=== PATIENT | female | born 1965 | race Caucasian/White ===

== ENCOUNTER 2018-09-12 18:23 | Inpatient (IN) | payer OTHER ==
[~2018-09-12] VITALS: Ht 160 cm; Wt 102.9 kg
--- NOTE | ~2018-09-12 | OP ---
[address] [address] OPERATIVE REPORT Name: BRANDI HENDERSON Room: [facility]#: [id number] Admission: 09/12/18 Attend Phys: Discharge: Date of : 65 Report #: [id number] THIS REPORT FOR: //name// CC: Jigna Méndez [facility] physician/PCP DATE OF SERVICE: 09/12/2018 PREOPERATIVE DIAGNOSES: Left ureteropelvic junction stone, pyelonephritis, fever. POSTOPERATIVE DIAGNOSES: Left ureteropelvic junction stone, pyelonephritis, fever. PROCEDURES: Cystourethroscopy, left retrograde pyelogram and left ureteral stent placement (6-Prydeinig x 24 cm). SURGEON: Jessica John M.D. ANESTHESIA: General. ESTIMATED BLOOD LOSS: None. COMPLICATIONS: None. SPECIMENS: Urine from left kidney for culture and sensitivity. INDICATIONS FOR PROCEDURE: The patient is a 53-year-old female who presented with a febrile, 12 mm left UPJ obstructing stone. She has actually had symptoms for over 2 months. She had leukocytosis and tachycardia on admission. Therefore, emergent stent placement was indicated. Risks of procedure were discussed including, not limited to infection, bleeding, injury to the urethra, bladder or ureter, need for secondary procedures, stent pain, cardiopulmonary complications. She voiced understanding and wishes to proceed. She does understand that the stent is temporary and after she has received adequate antibiotic course, she will be required to follow up with me for stone treatment in the future. DESCRIPTION OF PROCEDURE: After informed consent was obtained, the patient was taken back to the operating suite and placed supine. After induction of general anesthesia, she was placed in dorsal lithotomy position. Genitalia were prepped and draped in standard fashion. Rigid cystoscopy was performed. Urethra was normal. 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 Ureteral orifices were orthotopic in position. On fluoroscopy, the stone was visible and looked [place] [address] OPERATIVE REPORT Name: BRANDI HENDERSON Room: [facility]#: [id number] Admission: 09/12/18 Attend Phys: Discharge: Date of : 65 Report #: [id number] lower pole of the kidney. A sensor wire was placed up into the kidney and there was efflux of purulent urine from around the wire. The 5-Prydeinig ureteral catheter was inserted over the wire up into the kidney. The wire was removed and urine was aspirated, which was frankly purulent and sent for culture and sensitivity. Gentle retrograde was performed to delineate the collecting system for stent placement and this did confirm the stone had floated back into the lower pole. She had moderate hydronephrosis and not a whole lot of room in her renal pelvis. The wire was replaced and an open-ended catheter was removed. A 6-Prydeinig x 24 cm double-J stent was threaded over the wire. The proximal curl was left in the upper pole as there was not enough room for a whole curl in the renal pelvis and there was a good curl in the bladder under direct visualization. Purulent efflux was seen coming from the stent. The bladder was then drained and the scope was removed. A 5 mL of lidocaine jelly were placed per urethra for local anesthesia. She was awoken, extubated, and taken to recovery in satisfactory condition. She will be admitted to the floor on IV antibiotics and we will follow her cultures. She will require full antibiotic course before we schedule her for stone treatment. By: [id number] John MD /nt
[2018-09-12 18:37] VITALS: BP 153/81
[2018-09-12 19:00] LABS: HEMATOCRIT 50.1 % (37.0-47.0); HEMOGLOBIN 16.8 gm/dL (12.0-15.0); MCH 30.6 pg (26.0-34.0); MCHC 33.6 g/dL (28.0-37.0); MCV 91.3 fL (80.0-100.0); MPV 10.3 fl. (7.2-11.1); NUCLEATED RBCS 0 /100WBC; PLATELET COUNT* 202 thou/uL (150-400); RBC 5.49 mil/uL (4.20-5.00); RDW-CV 13.8 % (10.5-14.5); WBC 23.1 thou/uL (4.0-11.0)
[2018-09-12 19:10] LABS: CALCIUM 11.8 mg/dL (8.5-10.1); CREATININE 1.7 mg/dL (0.6-1.3); POTASSIUM 5.3 mmol/L (3.5-5.1)
[2018-09-12 19:14] LABS: ABSOLUTE LYMPHOCYTES 1.6 thou/uL (0.8-5.3); ABSOLUTE MONOCYTES 0.7 thou/uL (0.0-1.2); ABSOLUTE NEUTROPHILS 20.8 thou/uL (1.6-8.1); ALBUMIN 3.8 g/dL (3.4-5.0); PLATELET ESTIMATE ADEQUATE; TOTAL BILIRUBIN 0.6 mg/dL (<0.1-1.0); TOTAL PROTEIN 8.5 g/dL (6.4-8.2)
[2018-09-12 19:19] LABS: URINE BILIRUBIN NEGATIVE (Negative); URINE BLOOD 2+ (Negative); URINE CLARITY CLEAR; URINE COLOR YELLOW; URINE GLUCOSE-RANDOM NEGATIVE (Negative); URINE KETONES NEGATIVE (Negative); URINE NITRITE-REFLEX NEGATIVE (Negative); URINE PROTEIN 1+ (Negative); URINE SPECIFIC GRAVITY 1.015 (1.005-1.030); URINE UROBILINOGEN 0.2 E.U./dl (0.2-1.0)
[2018-09-12 19:21] LABS: URINE LEUKOCYTES-REFLEX 2+ (Negative)
[2018-09-12 19:31] LABS: SQUAMOUS NONE SEEN /LPF (0-3); URINE RBC 0-2 Rare /HPF (0-2)
[2018-09-12 19:32] LABS: BACTERIA-REFLEX None Seen /HPF (None Seen); CASTS None Seen /LPF (None Seen); CRYSTALS None Seen /LPF (None Seen)
[2018-09-12 20:41] LABS: APTT 30.3 Seconds (25.0-31.3); PROTIME 10.1 Seconds (9.20-11.50)
[2018-09-12 21:13] VITALS: BP 100/59
[2018-09-12 22:45] VITALS: BP 122/63
[2018-09-13] VITALS: BP 138/63
[2018-09-13 05:39] LABS: HEMATOCRIT 43.1 % (37.0-47.0); MCHC 33.4 g/dL (28.0-37.0); MCV 92.8 fL (80.0-100.0); MPV 10.2 fl. (7.2-11.1); RBC 4.65 mil/uL (4.20-5.00); RDW-CV 13.8 % (10.5-14.5); WBC 20.2 thou/uL (4.0-11.0)
[2018-09-13 05:45] LABS: HEMOGLOBIN 14.4 gm/dL (12.0-15.0)
[2018-09-13 05:50] LABS: CALCIUM 10.8 mg/dL (8.5-10.1); CREATININE 1.6 mg/dL (0.6-1.3)
--- NOTE | 2018-09-13 06:00 | NUR ---
PATIENT ARRIVED TO ROOM VIA CART AT 2240. REPORT RECEIVED FROM NINA RAYMOND. PT AAOX4, MED SURG STATUS. ORIENTED TO ROOM AND CALL LIGHT. SCDS IN PLACE, VSS, HOURLY ROUNDING COMPLETED.CALL LIGHT WITHIN REACH. NEGATIVE SEPSIS SCREENING.
[2018-09-13 07:37] VITALS: BP 123/68
--- NOTE | 2018-09-13 07:46 | NUR ---
ASSUMED CARE OF PT AT 0730. PT RESTING IN BED. PT A&0X4, DENIES ANY PAIN OR SHORTNESS OF BREATH AT THIS TIME. PT GIVEN PAIN MEDS BY NOC SHIFT STATING "IT HELPED". PT MED SURG STATUS. ON RA SAT 92%. IVF. PT UP SBA TO BATHROOM. PT GOAL FOR TODAY IS PAIN AND NAUSEA MGMT, INCREASE ACTIVITY, IV ABX AND DISCHARGE PLANNING TO HOME. AM ASSESSMENT CHARTED. MEDICATIONS PER MAR. PT REPOSITIONS SELF. HOURLY ROUNDING OBSERVED. BED IN LOW POSITION. CALL LIGHT WITHIN REACH. WILL CONTINUE PLAN OF CARE.
--- NOTE | 2018-09-13 10:37 | NUR ---
Pt is A&O. Resides at home with dtr. Active and independent. No DME. No hx of HH or SNF. Goal is home at dc. No needs anticipated.
--- NOTE | 2018-09-13 13:18 | EKG ---
[place] [address] ELECTROCARDIOGRAM REPORT Name: BRANDI HENDERSON Room: [address] ADM IN M.R.#: [id number] Admission: 09/12/18 Attend Phys: Brittney Mayer Discharge: Date of : 65 Report #: [id number] THIS REPORT FOR: //name// [facility] [place] ED Test Date: 2018-09-12 Test Time: 18:45:49 Pat Name: BRANDI HENDERSON Department: Room: [facility] Gender: F Highway Traffic Control Technician: : 1965 Requested By: Jigna Méndez Order Number: [id number] MD: Almas Moss Measurements Intervals [place] Rate: 120 P: 71 [place]: 164 QRS: 84 QRSD: 88 T: 24 QT: 304 QTc: 430 Interpretive Statements Sinus tachycardia Anterolateral infarct, old Baseline wander in lead(s) III,aVL,aVF No previous ECG available for comparison Electronically Signed On 09-13-2018 13:18:02 CDT by Almas Moss [email or web address] <ELECTRONICALLY SIGNED> By: Almsa Moss MD, [facility] 09/13/18 1318 1845 1845 Almas Moss MD, FAC /EPI
[2018-09-13 16:08] VITALS: BP 125/70
--- NOTE | 2018-09-13 16:39 | NUR ---
NO ACUTE CHANGES THROUGHOUT SHIFT, REFER TO CHARTING. PT COMPLAINS OF PAIN AND BLADDER SPASMS THROUGHOUT SHIFT-TREATED WITH PRN WITH PARTIAL RELIEF. PT CONTINUES TO BE ON MED SURG. ON RA SAT UPPER 90'S. PT UP AD MELINA IN ROOM. PT VOIDING WELL. PT PROGRESSING TOWARDS GOALS. REMAINED FREE FROM NAUSEA THROUGHOUT SHIFT. IV ABX. MEDICATIONS PER JUN. PT REPOSITIONS SELF. HOURLY ROUNDING OBSERVED. BED IN LOW POSITION. CALL LIGHT WITHIN REACH. WILL CONTINUE PLAN OF CARE.
[2018-09-13 20:00] VITALS: BP 146/69
[2018-09-13 23:57] VITALS: BP 114/65
[2018-09-14 03:51] LABS: HEMATOCRIT 41.7 % (37.0-47.0); HEMOGLOBIN 13.8 gm/dL (12.0-15.0); MCH 30.9 pg (26.0-34.0); MCHC 33.1 g/dL (28.0-37.0); MCV 93.2 fL (80.0-100.0); MPV 10.5 fl. (7.2-11.1); RBC 4.48 mil/uL (4.20-5.00); RDW-CV 13.7 % (10.5-14.5); WBC 14.7 thou/uL (4.0-11.0)
[2018-09-14 04:24] LABS: CALCIUM 11.2 mg/dL (8.5-10.1); CREATININE 1.4 mg/dL (0.6-1.3); MAGNESIUM 1.9 mg/dL (1.8-2.4); POTASSIUM 4.7 mmol/L (3.5-5.1)
[2018-09-14 07:10] VITALS: BP 149/74
--- NOTE | 2018-09-14 07:58 | NUR ---
INITAL ASSESMENT COMPLETED CHARTED. PT IS M/S STATUS. PT IS AFEBRILE THIS MORNING WITH O2 SATS AT 87% ON RA. PT GIVEN HYDROCODONE FOR PAIN/FEVER. PT ALSO PUT ON 1 LPM WITH O2 SATS RISING TO 92%. HOURLY ROUNDING AND FALL PRECAUTIONS IN PLACE FOR PT SAFETY. PT IS ALERT & ORIENTED AND ABLE TO VOICE ALL NEEDS. PT MASHA ANY FURTHER NEEDS AT THIS TIEM. CLWR.
[2018-09-14 11:35] VITALS: BP 123/59
[2018-09-14 13:49] LABS: CREATININE 1.4 mg/dL (0.6-1.3); PHOSPHORUS* 3.1 mg/dL (2.5-4.9)
[2018-09-14 20:00] VITALS: BP 145/64
--- NOTE | 2018-09-14 20:11 | NUR ---
I ASSUMED CARE OF THE PATIENT AT 1400 AND SHE WAS OFF THE UNIT FOR SURGERY UNTIL 1730. SHE IS ALERT AND ORIENTED X4 AND IS UP AD MELINA. SHE HAS A DECOMPRESSION TUBE HOOKED UP TO LIS AND SHOULD BE IRRIGATED EVERY 4 HOURS WITH 300 CC OF WARM WATER AND LIS OFF FOR 30 MIN. HOURLY ROUNDING IS COMPLETED AND PATIENT NEEDS ARE MET. PAIN IS MANAGED WITH PRN MEDS. POTASSIUM IS BEING REPLACED. WILL CONTINUE TO MONITOR.
--- NOTE | 2018-09-14 20:19 | NUR ---
I ASSUMED CARE OF THE PATIENT AT 1400. SHE IS ALERT AND ORIENTED X4 AND IS UP AD MELINA. STENT IS IN PLACE. PATIENT IS OCCASSIONALLY FEBRILE. TYLENOL WAS GIVEN TO MANAGE FEVER. WILL CONTINUE TO MONITOR. HOURLY ROUNDING WAS COMPLETED AND PATIENT NEEDS WERE MET. PAIN IS MANAGED WITH PRN MEDS. WILL CONTINUE TO MONITOR.
[2018-09-15 03:48] LABS: HEMATOCRIT 40.8 % (37.0-47.0); HEMOGLOBIN 13.6 gm/dL (12.0-15.0); MCH 30.7 pg (26.0-34.0); MCHC 33.3 g/dL (28.0-37.0); MCV 92.3 fL (80.0-100.0); MPV 10.5 fl. (7.2-11.1); RBC 4.42 mil/uL (4.20-5.00); RDW-CV 13.6 % (10.5-14.5); WBC 8.1 thou/uL (4.0-11.0)
[2018-09-15 04:02] LABS: CALCIUM 10.9 mg/dL (8.5-10.1); CREATININE 1.2 mg/dL (0.6-1.3); MAGNESIUM 1.7 mg/dL (1.8-2.4); POTASSIUM 4.5 mmol/L (3.5-5.1)
[2018-09-15 07:40] VITALS: BP 156/87
--- NOTE | 2018-09-15 13:24 | NUR ---
Nutrition: Pt admitted with sepsis 2/2 ureteral stone s/p stent e. coli. Seen for high BMI. Current wt is recorded as 226#; usual wt is ~220#. Regular diet ordered. Albumin 3.8. No edema noted. Encourage good po intake at meal times, and good fluid intake. Consider mild nutrition risk at this time.
[2018-09-15 15:32] VITALS: BP 157/73
--- NOTE | 2018-09-15 16:28 | NUR ---
ASSUMED CARE OF PATIENT AT APPROX 0730. ALERT AND ORIENTED X4. ASSESSMENT COMPLETED AND CHARTED. VSS ON ROOM AIR. PAIN MANAGED WITH ORAL PAIN MEDICATION. ANTIBIOTIC INFUSED ORDERED. PATIENT UP IN CHAIR THROUGHOUT SHIFT. NOT OTHER COMPLAINTS VOICED. PATIENT UP AD MELINA. SHOWERED TODAY. HOURLY OUNDS COMPLETED. CALL LIGHT WITHIN REACH. NURSING WILL CONTINUE TO MONITOR.
[2018-09-15 21:30] VITALS: BP 138/84
[2018-09-15 22:30] VITALS: BP 138/84
[2018-09-16 05:07] LABS: CALCIUM 11.2 mg/dL (8.5-10.1); CREATININE 1.2 mg/dL (0.6-1.3); MAGNESIUM 1.8 mg/dL (1.8-2.4); POTASSIUM 4.4 mmol/L (3.5-5.1)
--- NOTE | 2018-09-16 05:56 | NUR ---
PATIENT HAS RESTED WELL THROUGHOUT THE NIGHT. VSS ON RA, ALTHOUGH PATIENT DID HAVE TEMP OF 100.0. PATIENT IS UP AD-MELINA AND STEADY. MEDICATIONS GIVEN ORDERED AND CHARTED. IV IN RIGHT HAND-SL. PATIENT INSTRUCTED TO USE CALL LIGHT WHEN NEEDING ASSISTANCE. HOURLY ROUNDS MADE. WILL CONTINUE WITH PLAN OF CARE AND NURSING TO MONITOR.
[2018-09-16 07:50] VITALS: BP 151/89
[2018-09-16] MEDS ORDERED: HYDROCODON-ACE1 EAC7 PO (08:10)
[2018-09-16] MEDS ORDERED: COLACE 100 MG100 MG PO (08:10)
[2018-09-16] MEDS ORDERED: CEFUROXIME500 MG PO (08:10)
[2018-09-16] MEDS ORDERED: ERGOCALCIF50000 UNIT PO (08:10)
[2018-09-16] MEDS ORDERED: LEVSIN0.125 MG SUBLING (08:10)
[2018-09-16] MEDS ORDERED: ZOFRAN ODT4 MG PO (08:18)
[2018-09-16 15:12] VITALS: BP 151/89
--- NOTE | 2018-09-16 16:10 | NUR ---
DISCHARGE TO HOME. REVIEW OF DISCHARGE INSTRUCTIONS COMPLETED W/ PATIENT. PATIENT STATES VERBALLY OF UNDERSTANDING. COPY OF INSTRUCTIONS GIVEN TO PATIENT. SCRIPTS GIVEN TO PATIENT. BELONGINGS GATHERED PER PATIENT. BELONGINGS WITH PATIENT AT TIME OF DISCHARGE. IV SL DISCONTINUED, CATH TIP INTACT. COTTON BALL/TAPE APPLIED TO SITE. SON ARRIVES TO SCRAP BALER PATIENT. PATIENT ESCORTED TO AWAITING VEHICLE PER PEDIS W/ STEADY, SLOW GAIT. DENIES PAIN/N/V. NO OTHER NURSING NEEDS VOICED AT THIS TIME. PLEASANT AND CONVERSANT. ALERT AND ORIENTED. ~TJRN
== END 2018-09-16 16:10 | disposition home or self-care (01) | DRG 853 ==
LOC: M.ERS 18:23 → M.SUR 18:23 → M.2W 22:47 → M.ORTHSURG 09-14 14:29
PROVIDERS: Internal Medicine; Nurse Practitioner Family; Urology; ADMIT Internal Medicine
PROC: BT1F1ZZ Fluoroscopy of Left Kidney, Ureter and Bladder using Low Osmolar Contrast (ICD-10-PCS; principal; 2018-09-12)
PROC: 0T778DZ Dilation of Left Ureter with Intraluminal Device, Via Natural or Artificial Opening Endoscopic (ICD-10-PCS; principal; 2018-09-12)
DX: A41.9 Sepsis, unspecified organism (principal); N17.0 Acute kidney failure with tubular necrosis; N13.6 Pyonephrosis; Z68.41 Body mass index [BMI] 40.0-44.9, adult; E55.9 Vitamin D deficiency, unspecified; E21.3 Hyperparathyroidism, unspecified; E66.9 Obesity, unspecified; E83.52 Hypercalcemia; J84.89 Other specified interstitial pulmonary diseases; F17.210 Nicotine dependence, cigarettes, uncomplicated; K59.00 Constipation, unspecified; R31.9 Hematuria, unspecified; Z86.73 Personal history of transient ischemic attack (TIA), and cerebral infarction without residual deficits; Z98.891 History of uterine scar from previous surgery

== ENCOUNTER 2020-06-19 21:15 | Inpatient (IN) | payer OTHER ==
[~2020-06-19] VITALS: Ht 157.5 cm; Wt 115.8 kg
[2020-06-19 21:15] VITALS: BP 197/93
[~2020-06-19 21:15] MED LIST: CEFUROXIME500 MG PO; COLACE 100 MG100 MG PO; ERGOCALCIF50000 UNIT PO; HYDROCODON-ACE1 EAC7 PO; LEVSIN0.125 MG SUBLING; ZOFRAN ODT4 MG PO
[2020-06-19 21:33] LABS: ABSOLUTE BASOPHILS 0.2 thou/uL (0.0-0.2); ABSOLUTE EOSINOPHILS 0.3 thou/uL (0.0-0.7); ABSOLUTE LYMPHOCYTES 3.8 thou/uL (0.8-5.3); ABSOLUTE NEUTROPHILS 6.7 thou/uL (1.6-8.1); BASOPHILS 1.4 %; EOSINOPHILS 2.4 %; HEMATOCRIT 51.3 % (37.0-47.0); HEMOGLOBIN 16.8 gm/dL (12.0-15.0); LYMPHOCYTES 31.5 %; MCH 30.6 pg (26.0-34.0); MCHC 32.8 g/dL (28.0-37.0); MCV 93.3 fL (80.0-100.0); MONOCYTES 8.3 %; MPV 9.4 fl. (7.2-11.1); NUCLEATED RBCS 0 /100WBC; PLATELET COUNT* 179 thou/uL (150-400); POLYS 56.4 %; RDW-CV 15.5 % (10.5-14.5); WBC 11.9 thou/uL (4.0-11.0)
[2020-06-19 21:48] LABS: CREATININE 1.1 mg/dL (0.6-1.3); POTASSIUM 4.4 mmol/L (3.5-5.1)
[2020-06-19 21:58] LABS: ALBUMIN 3.3 g/dL (3.4-5.0); MAGNESIUM 2.1 mg/dL (1.8-2.4); PROTIME 10.2 Seconds (9.20-11.50); TOTAL BILIRUBIN 0.3 mg/dL (<0.1-1.0); TOTAL PROTEIN 8.1 g/dL (6.4-8.2)
[2020-06-20] VITALS (10 sets, daily range): BP systolic 112–156; BP diastolic 55–83
[2020-06-20 00:32] LABS: URINE BILIRUBIN NEGATIVE (Negative); URINE BLOOD NEGATIVE (Negative); URINE CLARITY CLEAR; URINE COLOR YELLOW; URINE GLUCOSE-RANDOM NEGATIVE (Negative); URINE KETONES NEGATIVE (Negative); URINE LEUKOCYTES-REFLEX NEGATIVE (Negative); URINE NITRITE-REFLEX NEGATIVE (Negative); URINE PROTEIN NEGATIVE (Negative); URINE UROBILINOGEN 0.2 E.U./dl (0.2-1.0)
--- NOTE | 2020-06-20 06:10 | NUR ---
RECEIVED PT FROM ED AT APPROX 0230. PT IS AWAKE AND ORIENTED X4. VEGETABLE FARMWORKER PUT IN PLACE AND IS TRACING SR. PT IS NOT IN DISTRESS, NO DESATURATIONS NOTED ON 2L OF O2/NC. PT C/O BILATERAL ARM PAIN RADIATING TO THE NECK AND JAW BUT STATED THAT IT FEELS BETTER AND DENIES THE NEED FOR MORE PAIN MEDICINE AT THIS TIME. 3RD TROPONIN IS 0.80, DR MCGRAW IS INFORMED, TROP IS REDRAWN AFTER 2HRS PER DR MCGRAW. AWAITING RESULT. WILL CONTINUE TO MONITOR PT.
[2020-06-20 09:13] LABS: CHOLESTEROL 193 mg/dL (<200); HDL CHOLESTEROL 42 mg/dL (>40); LDL CHOLESTEROL 136 mg/dL (<100); SERUM ASSESSMENT Clear; TC:HDL 4.6 Ratio (Not establshd); TRIGLYCERIDE 79 mg/dL (<150); VLDL 16 mg/dL (<40)
--- NOTE | 2020-06-20 09:34 | EKG ---
[place] [address] ELECTROCARDIOGRAM REPORT Name: BRANDI HENDERSON Room: [address] ADM IN M.R.#: [id number] Admission: 06/20/20 Attend Phys: Elvis Rodrigez Discharge: Date of : 65 Date of Service: 06/19/202218 Report #: [id number] THIS REPORT FOR: //name// [facility] [place] ED Test Date: 2020-06-19 Test Time: 22:19:27 Pat Name: BRANDI HENDERSON Department: Room: [address] Gender: F Museum Informatics Specialist: LU : 1965 Requested By: Deisy Ha Order Number: [id number] Reading MD: Almas Moss Measurements Intervals [place] Rate: 72 P: 55 [place]: 188 QRS: -57 QRSD: 101 T: 35 QT: 407 QTc: 446 Interpretive Statements Sinus rhythm Left anterior fascicular block Anterior infarct, old Nonspecific repol abnormality, inferior leads Baseline wander in lead(s) II,III,aVR,aVL,aVF,V1,V2,V3,V4,V5,V6 Compared to ECG 06/19/2020 21:17:36 Early repolarization now present Myocardial infarct finding still present Electronically Signed On 06-20-2020 9:34:23 LIGHT RAIL VEHICLE OPERATOR by Almas Moss [email or web address] <ELECTRONICALLY SIGNED> By: Almas Moss MD, [facility] 06/20/20 0934 18 18 Almas Moss MD, [facility] /EPI
--- NOTE | 2020-06-20 09:34 | EKG ---
[place] [address] ELECTROCARDIOGRAM REPORT Name: BRANDI HENDERSON Room: [address] ADM IN .R.#: [id number] Admission: 06/20/20 Attend Phys: Elvis Rodrigez Discharge: Date of : 65 Date of Service: 06/19/202116 Report #: [id number] THIS REPORT FOR: //name// [facility] [place] ED Test Date: 2020-06-19 Test Time: 21:17:36 Pat Name: BRANDI HENDERSON Department: Room: [facility] Gender: F Choir Leader: LU : 1965 Requested By: Deisy Ha Order Number: [id number] MD: Almas Moss Measurements Intervals [place] Rate: 89 P: 75 [place]: 189 QRS: -63 QRSD: 90 T: 45 QT: 380 QTc: 463 Interpretive Statements Sinus rhythm Left anterior fascicular block Anterior infarct, old Baseline wander in lead(s) I,aVR Compared to ECG 09/12/2018 18:45:49 Left anterior fascicular block now present Sinus tachycardia no longer present Myocardial infarct finding still present Electronically Signed On 06-20-2020 9:34:02 IT PROGRAMMER ANALYST by Almas Moss [email or web address] <ELECTRONICALLY SIGNED> By: Almas Moss MD, [facility] 06/20/2034 16 16 Almas Moss MD, [facility] /EPI
--- NOTE | 2020-06-20 13:38 | NUR ---
Nutrition: Pt admitted withchest pain. Consult received for diet instruction. Pt is COVID pending isolation. Spoke with her RN, decided Tuesday would be good time for diet education. RD will speak with pt about heart healthy diet Tuesday. H/o COPD, OBE, possible sleep apnea, smoker. Labs: LDL 136, alb 3.3, BG 170. Heart healthy diet ordered. Usual wt 220#. Pt to get cardiac cath. Mild risk. Will educate Tuesday06/23/20.
--- NOTE | 2020-06-20 13:38 | NUR ---
Pt is A&O. PUI. Resides at home with kids. Independent. No DME. No hx of HH or SNF. Plan cath today. Possible dc tomorrow.
--- NOTE | 2020-06-20 16:57 | CARD ---
[address] [address] CARDIAC CATH REPORT Name: BRANDI HENDERSON Room: [address] ADM IN ..#: [id number] Admission: 06/20/20 Attend Phys: Brittney Mayer Discharge: Date of : 65 Report #: [id number] THIS REPORT FOR: cc: FAM - No family physician/PCP FAM - No family physician/PCP ~ Almas Moss MD [facility] APPROVED REPORT Study performed: 06/20/2020 14:34:20 Patient Details Patient Status: In-Patient Room #: 208 The patient is a 55 year-old female Event Personnel Almas Moss Medical Artist, Megan Gilliland Commercial Sales Director, César Rievra RTR Scrub, Louise Montoya RTR Monitor Procedures Performed Art Access - R femoral artery , Left Heart Cath w/or w/o Coronaries [id number] [facility] , [address] w/wo Plasty Single RCA [id number], Hemostasis w/ Mynx Indication Non-STEMI Risk Factors Obesity, Hypercholesterolemia, Hypertension Admission/Lab Medications/Medications given during procedure Angiomax IV 17 ml, Angiomax Drip IV 40 ml per hr, Effient PO 60 mg, Aspirin PO 162 mg Procedure Narrative The patient was brought urgently to the Cardiac Catheterization Laboratory and was prepped and draped in a sterile manner. The right femoral was infiltrated with 2% Lidocaine subcutaneous anesthesia. A [place] 6 FR sheath was inserted into the right femoral artery. Coronary angiography was performed using coronary diagnostic catheters. The right coronary system was accessed and visualized with a 6F JR4 catheter. The left coronary system was accessed and visualized with a 6F JL4 catheter. The left ventricle was accessed and visualized with a 6F Pigtail catheter. Left ventricular/[place] [address] CARDIAC CATH REPORT Name: BRANDI HENDERSON Room: [address]#: [id number] Admission: 06/20/20 Attend Phys: Brittney Mayer Discharge: Date of : 65 Report #: [id number] Valve gradient assessed via catheter pullback. Left ventriculogram was performed in MOISE projection. Pre-demployment femoral angiogram was performed . Closure device was deployed with a 6 Fr Mynx. The patient tolerated the procedure well and there were no complications associated with the procedure. There was no hematoma. Intraoperative Conscious Sedation Sedation start time: 15:08 Case end Time: 15:54 No sedation given. Fluoro Time: 10.2 minutes Dose: DAP 457983 cGycm2 2259 mGy Contrast Type and Amount: Visipaque 280 ml Diagnostic Cath Left Main 0% narrowing LAD 30% mid LAD narrowing with 50% ostial first diagonal stenosis Circumflex Nondominant vessel with 30% mid vessel narrowing Right Coronary Dominant vessel with 80% proximal stenosis with local thrombus at the site; there was 40% distal right coronary narrowing Left Ventriculography The left ventricle is normal in size with normal contractility. The left ventricular ejection fraction is estimated to be 55-60%. Left ventricular wall motion abnormalities are not present. There is no mitral insufficiency. Hemodynamics The aortic pressure is 164/93 mmHg with a mean of 124 mmHg. The left ventricular pressure is 166/14 mmHg with a mean of mmHg. The left ventricular end diastolic pressure is 25 mmHg. There was no gradient across the aortic valve upon pullback. PCI Technique Lesion Anticoagulation was achieved with Angiomax. Patient was preloaded with Angiomax IV 17 ml. Percutaneous coronary intervention was performed on the proximal right coronary artery. The lesion stenosis prior to intervention was 80% with MELISSA 3 flow. A 6F JR 4.0 Guide Catheter was used to engage the right ostium. A BMW 190cm Interventional Guidewire was used to cross the lesion. BALLOON DILATION A Balloon catheter Trek RX 2.75 X 12 was inserted and inflated up to [address] [place] [address] CARDIAC CATH REPORT Name: BEATRIZBRANDI Beck Room: [address] IN [facility]#: [id number] Admission: 06/20/20 Attend Phys: Brittney Mayer Discharge: Date of : 65 Report #: [id number] 15.00atm for 14seconds. STENT DEPLOYMENT A drug-eluting stent Daljit RX Stent 3.0X18mm was inserted and inflated up to 16.00atm for 9seconds. Additional Inflation: 20.00atm for 10seconds. POST STENT DEPLOYMENT BALLOON DILATION A Balloon catheter NC TREK RX 3.5X12 was inserted and inflated up to 15.00atm for 9seconds. Additional Inflation: 17.00atm for 9seconds. Additional Inflation: 17.00atm for 9seconds. Final angiography reveals 10 % stenosis with MELISSA 3 flow. COMMENTS ACT 384. Conclusion 1. Significant coronary artery disease characterized by the following: A 80% proximal right coronary stenosis with local thrombus at the site with 40% distal right coronary narrowing B. 30% mid LAD narrowing with 50% ostial first diagonal stenosis C 30% narrowing in the midportion of the nondominant circumflex 2. Normal left ventricular systolic function, estimated ejection fraction 55-60% 3. Mild systemic systolic hypertension with moderately severe elevation of left ventricular end-diastolic pressure at rest 4. Successful PCI with deployment of a drug-eluting stent at the site of 80% proximal right coronary stenosis with 10% residual narrowing no residual thrombus and MELISSA-3 flow to the distal vessel Recommendations Cardiac Risk Reduction Program Aggressive Medical Therapy Medications Administered Aspirin (any) [place] [address] CARDIAC CATH REPORT Name: BRANDI HENDERSON Room: [address] IN .R.#: [id number] Admission: 06/20/20 Attend Phys: Brittney Mayer Discharge: Date of : 65 Report #: [id number] Prasugrel Diagnostic Cath Approved by: Almas Moss MD Date/Time: 06/20/2020 16:55:38 <ELECTRONICALLY SIGNED> By: Almas Moss MD, [facility] 06/20/201655 55 55Jobrant Moss MD, [facility] /INF
--- NOTE | 2020-06-20 19:42 | NUR ---
ASSUMED PT CARE AT 0730. PT IS A&OX4, PLEASANT AND DENIES ANY PAIN AT THIS TIME ONLY MILD DISCOMFORT IN HER R ARM. PCR PENDING. PT STARTED ON HEPARIN PROTOCOL AND IS PENDING FOR CARDIAC CATH TODAY. SPOKE WITH DR. MCGRAW FOR CLARIFICATION TO DC THE HEPARIN PROTOCOL, POST PROCEDURE. PT TO HIGH WIRE ARTIST TODAY AND A STINT WAS PLACED IN THE RAC. PT IN BED, POST PROCEDURE AND TOLERATED PROCEDURE WELL PER HIGH WIRE ARTIST. APTT 43.6. PT TO REMAIM FLAT UNTIL 2150. VSS WERE MONITORED PER PROTOCAL. PT IS A&OX4 AND DENIES ANY PAIN OR DISCOMFORT AT THIS TIME.
[2020-06-21 04:00] VITALS: BP 146/74
[2020-06-21 06:29] LABS: ABSOLUTE LYMPHOCYTES 1.6 thou/uL (0.8-5.3); ABSOLUTE MONOCYTES 0.4 thou/uL (0.0-1.2); BASOPHILS 0.1 %; HEMATOCRIT 50.4 % (37.0-47.0); HEMOGLOBIN 16.3 gm/dL (12.0-15.0); LYMPHOCYTES 13.5 %; MCH 30.4 pg (26.0-34.0); MCHC 32.4 g/dL (28.0-37.0); MCV 93.8 fL (80.0-100.0); MPV 9.8 fl. (7.2-11.1); NUCLEATED RBCS 0 /100WBC; PLATELET COUNT* 192 thou/uL (150-400); POLYS 83.4 %; RBC 5.38 mil/uL (4.20-5.00); RDW-CV 15.6 % (10.5-14.5)
[2020-06-21 06:51] LABS: ALBUMIN 3.3 g/dL (3.4-5.0); CREATININE 1.1 mg/dL (0.6-1.3); POTASSIUM 4.5 mmol/L (3.5-5.1); TOTAL BILIRUBIN 0.3 mg/dL (<0.1-1.0); TOTAL PROTEIN 8.6 g/dL (6.4-8.2)
[2020-06-21 06:54] LABS: TROPONIN-I LEVEL 4.28 ng/mL (<0.06)
[2020-06-21 08:00] VITALS: BP 171/87
[2020-06-21] MEDS ORDERED: ASPIR 8181 MG PO (09:21)
[2020-06-21] MEDS ORDERED: EFFIENT10 MG PO (09:21)
[2020-06-21] MEDS ORDERED: METOPROLOL TART25 MG PO (09:21)
[2020-06-21] MEDS ORDERED: LIPITOR40 MG PO (09:21)
[2020-06-21] MEDS ORDERED: NEXIUM40 MG PO (09:21)
[2020-06-21] MEDS ORDERED: CEFDINIR300 MG PO (09:24)
[2020-06-21] MEDS ORDERED: PREDNISONE 10 M10 MG PO (09:24)
[2020-06-21 11:39] VITALS: BP 171/87
--- NOTE | 2020-06-21 12:28 | D ---
[address] [address] DISCHARGE SUMMARY Name: BRANDI HENDERSON Room: [address] ADM IN M.R.#: [id number] Admission: 06/20/20 Attend Phys: Brittney Mayer Discharge: Date of : 65 Report #: [id number] THIS REPORT FOR: cc: FAM - No family physician/PCP FAM - No family physician/PCP ~ Almas Moss MD [facility] The patient is a 55-year-old female who presented with arm and chest discomfort. She has underlying diabetes and hypertension. Troponin arielle to a value slightly less than 2 units. In that context, her nurse practitioner, Marya Mao, recommend a cardiac catheterization which was undertaken on 06/20/2020. That study revealed 80% proximal right coronary stenosis with local thrombus at the site. There were no significant left main, LAD or circumflex narrowings. I placed one Daljit drug-eluting stent in the proximal right coronary artery, post-dilated to a 3.5 mm with 10% residual narrowing, MELISSA 3 flow of the distal vessel and no residual thrombus. Peak troponin post-non infarction was 4.28. The patient is discharged on dual antiplatelet therapy including aspirin and prasugrel, insulin as previously prescribed for diabetes in her antihypertensive regimen. We are asked to have her return to see my nurse practitioner in 7 14 days. <ELECTRONICALLY SIGNED> By: Almas Moss MD, [facility] 06/21/20 1228 1120 1150Almas Moss MD, [facility] /nt
--- NOTE | 2020-06-21 14:14 | EKG ---
[place] [address] ELECTROCARDIOGRAM REPORT Name: BRANDI HENDERSON Room: [address] DIS IN M.R.#: [id number] Admission: 06/20/20 Attend Phys: Elvis Rodrigez Discharge: 06/21/20 Date of : 65 Date of Service: 06/21/20 0632 Report #: [id number] THIS REPORT FOR: //name// [facility] Test Date: 2020-06-21 Test Time: 06:32:23 Pat Name: BRANDI HENDERSON Department: Room: [address] Gender: F Batter Mixer: TOM : 1965 Requested By: Almas Moss Order Number: [id number] Reading MD: Jg Vences Measurements Intervals [place] Rate: 75 P: 53 [place]: 175 QRS: -30 QRSD: 98 T: 85 QT: 426 QTc: 476 Interpretive Statements Sinus rhythm Left axis deviation Consider anterior infarct Nonspecific T abnormalities, lateral leads Compared to ECG 06/19/2020 22:19:27 Left-axis deviation now present T-wave abnormality now present Left anterior fascicular block no longer present Early repolarization no longer present Myocardial infarct finding still present Electronically Signed On 06-21-2020 14:14:21 UNIVERSITY ADMINISTRATIVE ASSISTANT by Jg Vences [email or web address] <ELECTRONICALLY SIGNED> By: Jg Vences MD, [facility] 06/21/20 1414 0632 Jg Vences MD, [facility] /EPI
--- NOTE | 2020-06-23 10:37 | NUR ---
Nutrition: Follow up note. Pt was discharged over weekend. Called pt today to offer diet educ. She did receive cardiac booklet. She stated she has looked over it and she has already gone grocery shopping and made menus. Her daughter is in town helping as well. She had no questions about it today. RD contact info provided and encouraged pt to call with questions or needing more info.
== END 2020-06-21 12:27 | disposition home or self-care (01) | DRG 246 ==
LOC: M.ERS 21:15 → M.TBA-ER 06-20 01:08 → M.2W 06-20 02:29
PROVIDERS: Emergency Medicine; Internal Medicine; Registered Nurse; ADMIT Internal Medicine; ATTEND Internal Medicine
DX: I21.4 Non-ST elevation (NSTEMI) myocardial infarction (principal); J18.9 Pneumonia, unspecified organism; Z68.42 Body mass index [BMI] 45.0-49.9, adult; J44.1 Chronic obstructive pulmonary disease with (acute) exacerbation; J44.0 Chronic obstructive pulmonary disease with (acute) lower respiratory infection; F17.210 Nicotine dependence, cigarettes, uncomplicated; K80.20 Calculus of gallbladder without cholecystitis without obstruction; I10 Essential (primary) hypertension; E78.5 Hyperlipidemia, unspecified; E66.01 Morbid (severe) obesity due to excess calories; G47.30 Sleep apnea, unspecified; I25.10 Atherosclerotic heart disease of native coronary artery without angina pectoris; Z20.822 Contact with and (suspected) exposure to COVID-19; Z98.891 History of uterine scar from previous surgery; Z79.899 Other long term (current) drug therapy; Z28.89 Immunization not carried out for other reason

== ENCOUNTER → 2020-07-08 | Outpatient (CLI) | payer OTHER ==
[~2020-07-08] MED LIST changes: +ASPIR 8181 MG PO; +CEFDINIR300 MG PO; +EFFIENT10 MG PO; +LIPITOR40 MG PO; +METOPROLOL TART25 MG PO; +NEXIUM40 MG PO; +PREDNISONE 10 M10 MG PO
--- NOTE | 2020-07-23 12:05 | PF ---
[address] [address] PULMONARY FUNCTION REPORT Name: SHAUN HENDERSONINE Kiran Room: [facility]#: [id number] Admission: 07/08/20 Attend Phys: Almas Wong MD, Discharge: Date of : 65 Report #: [id number] THIS REPORT FOR: cc: CHAD GRACE NP, KATHERINE J. NP Pervez, Adeel MD ~ DATE OF SERVICE: 07/08/2020 The FEV1/FVC ratio is normal at 70% with an FVC mildly decreased to 77% and FEV1 decreased to 68%. The CNQ33-40 is also decreased to 34%. After the administration of a bronchodilator, there is a 58% increase in the DFV06-76. There is no other significant change in spirometry after the administration of a bronchodilator. The patient's post-bronchodilator FEV1 is noted to be 1.77 L. The total lung capacity is normal at 81% with residual volume mildly decreased to 74%. The DLCO as adjusted for hemoglobin is decreased to 75%. IMPRESSION: 1. There is a moderate restrictive pattern on spirometry. I suspect that at least mild obstruction underlying is present as evidenced by significant increase in SSP86-94 after the administration of a bronchodilator. 2. In addition to above, I suspect that there is a mild restriction as well as residual volume is mildly decreased to 74%. 3. The DLCO as adjusted for hemoglobin is mildly decreased to 75%. <ELECTRONICALLY SIGNED> By: Errol Butcher MD 07/23/20 1205 1348 2057Amary Butcher MD /nt
== END ==
LOC: M.PUL 11:30
PROVIDERS: ATTEND Internal Medicine Cardiovascular Disease
DX: J44.9 Chronic obstructive pulmonary disease, unspecified (principal)

== ENCOUNTER 2021-01-30 17:43 | Emergency (ER) | payer OTHER ==
[~2021-01-30] VITALS: Ht 160 cm; Wt 99.8 kg
[2021-01-30] MEDS ORDERED: KLOR-CON 10 ER10 MEQ PO (18:00)
[2021-01-30] MEDS ORDERED: ANUSOL-HC30 GM TOP (20:08)
[2021-01-30 20:14] VITALS: BP 145/97
== END 2021-01-30 20:15 | disposition home or self-care (01) ==
LOC: M.ERS 17:43
DX: K59.00 Constipation, unspecified (principal); K64.4 Residual hemorrhoidal skin tags; K64.8 Other hemorrhoids; R30.9 Painful micturition, unspecified; F17.210 Nicotine dependence, cigarettes, uncomplicated; Z98.890 Other specified postprocedural states; Z87.442 Personal history of urinary calculi; Z79.899 Other long term (current) drug therapy